=== PATIENT | female | born 1955 | race African-American/Black ===

== ENCOUNTER 2016-09-01 17:24 | Emergency (ER) | payer SELFPAY ==
[~2016-09-01] VITALS: Ht 167.6 cm; Wt 113.7 kg
[~2016-09-01 17:24] MED LIST: COMPAZINE10 MG PO; Ecotrin PO; KEFLEX500 MG PO; NAPROSYN500 MG PO; NOHOMEMEDS; OMEPRAZOLE40 M1 PO; PERCOCET 5/31 TABLET PO; PRILOSEC40 MG PO; PriLOSEC PO; Tylenol Regular Stre PO; ULTRAM50 MG PO; no home
[2016-09-01] MEDS ORDERED: PREDNISONE10 MG PO (19:36)
[2016-09-01 20:07] VITALS: BP 124/61
== END 2016-09-01 20:08 | disposition home or self-care (01) ==
LOC: EME 17:24
DX: M17.12 Unilateral primary osteoarthritis, left knee (principal)
CPT/HCPCS: 73564; 99281; 99283; J7512

== ENCOUNTER 2018-02-01 20:15 | Emergency (ER) | payer OTHER ==
[~2018-02-01] VITALS: Ht 165.1 cm; Wt 98.0 kg
[~2018-02-01 20:15] MED LIST changes: +PREDNISONE10 MG PO
[2018-02-01 20:55] LABS: HEMATOCRIT 35.6 % (36.0-46.0); HEMOGLOBIN 11.7 G/DL (11.9-15.5); MCH 25.1 PG (29.0-34.0); MCHC 32.9 G/DL (30.0-36.0); MCV 76.4 FL (83-99); PLATELET COUNT 131 K/uL (156-360); RBC DIS.WIDTH-CV 17.2 % (11.8-14.6); RBC DIS.WIDTH-SD 47.9 % (39-53); RED BLOOD COUNT 4.66 M/uL (3.80-5.20); WHITE BLOOD COUNT 5.2 K/uL (4.1-10.2)
[2018-02-01 20:59] LABS: CHLORIDE 93 mEq/L (99-109); POTASSIUM 3.4 mEq/L (3.7-5.4); SODIUM 134 mEq/L (136-147)
[2018-02-01 21:01] LABS: GLUCOSE 106 mg/dL (70-99)
[2018-02-01 21:05] LABS: CREATININE 0.8 mg/dL (0.6-1.3); GFR ESTIMATE (CALCULATED) > 59 mL/min/
[2018-02-01 21:06] LABS: UREA NITROGEN (BUN) 20 mg/dL (9-23)
[2018-02-01 21:32] LABS: ALBUMIN 3.6 g/dL (3.2-4.8)
[2018-02-01 21:35] LABS: TOTAL PROTEIN 7.7 g/dL (6.4-8.3)
[2018-02-01 21:36] LABS: TOTAL BILIRUBIN 0.8 mg/dL (0.0-1.0)
[2018-02-01 21:37] LABS: ALKALINE PHOSPHATASE 74 IU/L (3-129)
[2018-02-01 21:40] LABS: AST (GOT) 59 IU/L (2-34); DIRECT BILIRUBIN 0.5 mg/dL (0.0-0.3)
[2018-02-01 21:41] LABS: ALT (GPT) 36 IU/L (3-49); LIPASE 24 U/L (1.0-51.0)
[2018-02-01 22:23] LABS: TROP-I INTERPRETATION NEGATIVE; TROPONIN-I < 0.01 ng/mL (0.0-0.30)
[2018-02-01 22:53] LABS: APPEARANCE SL.HAZY ((CLEAR)); BILIRUBIN SMALL; BLOOD NEGATIVE; COLOR AMBER ((YELLOW)); GLUCOSE (STRIP) NEGATIVE; KETONES 20; LEUKOCYTES LARGE; NITRITE NEGATIVE; PROTEIN (STRIP) 100; SPECIFIC GRAVITY 1.028 (1.000-1.030)
[2018-02-01 22:59] LABS: BACTERIA NONE SEEN /HPF; EPITHELIAL CELLS 1+ /HPF; MUCUS 2+ /LPF; WHITE BLOOD CELLS 20-30 /HPF (0-5)
[2018-02-02 01:33] VITALS: BP 127/79
== END 2018-02-02 01:33 | disposition home or self-care (01) ==
LOC: EME 20:15
PROVIDERS: Physician Assistant
DX: R59.0 Localized enlarged lymph nodes (principal); E04.1 Nontoxic single thyroid nodule; D64.9 Anemia, unspecified; R53.83 Other fatigue; R06.02 Shortness of breath; Z87.01 Personal history of pneumonia (recurrent); R79.1 Abnormal coagulation profile; K44.9 Diaphragmatic hernia without obstruction or gangrene; Z86.73 Personal history of transient ischemic attack (TIA), and cerebral infarction without residual deficits
CPT/HCPCS: 71046; 71275; 80048; 80076; 81003; 83690; 84484; 85027; 85379; 87086; 93005; 99281; 99285; J7030